=== PATIENT | male | born 1965 | race African-American/Black ===

== ENCOUNTER → 2018-12-28 | Day surgery (SDC) | payer OTHER ==
[~2018-12-28] MED LIST: ALBUTEROL SULFATE 2.5 MG/3 ML NEBU. NEB PRN; ATORVASTATIN CA80 MG PO; ATROPINE 0.5 MG/5 ML DISP.SYRIN. IV PRN; HYDR12.58 PO; IV RINGERS SOLUTION,LACTATED 1,000 ML IV SCH; LIDOCAINE 2% PF Vial for OR 5 ML VIAL. ONE; LISI40TA PO; NALOXONE 0.4 MG/ML VIAL. IV PRN; ONDANSETRON PF 4 MG/2 ML VIAL. IV PRN; PROPOFOL 40 ML IV ONE; SODIUM PHOSPHATES 19/7GM 133 ML ENEMA. ONE; SODIUM PHOSPHATES 19/7GM 133 ML ENEMA. PR ONE; [UNRECOGNIZED DRUG - OTHER]; diphenhydrAMINE 50 MG/ML VIAL IV PRN
[2018-12-28 12:44] VITALS: BP 164/92
--- NOTE | 2018-12-31 18:06 | PATHOLOGY ---
[facility] Accession Number: [id number] . 01 Material submitted: . stomach - ANTRUM GASTRITIS . 01 Clinical history: . Pre-OP DX: EGD Post-OP DX: Antrum gastritis . 02 Diagnosis: Gastric biopsies, antrum: - Chronic gastritis, mild. (JPM:shira; 12/31/2018) QMS/12/31/2018 . 02 Comment: Sections of the gastric biopsy reveal segments of gastric antral mucosa showing congestion and mild chronic inflammation. A properly controlled immunoperoxidase stain for Helicobacter is negative for Helicobacter organisms. There is no evidence of malignancy. (JPM:shira 12/31/2018) . . Special stain performed: Immunoperoxidase stain for Helicobacter on A1. . 02 Electronically signed: . Omar Bowers MD, Pathologist NPI- [id number] . 01 Gross description: . Received in formalin labeled "Franco, Alan, antrum gastritis," are 2 segments of chinchilla soft tissue measuring 0.9 x 0.3 x 0.2 cm in aggregate dimensions and ranging from 0.4 to 0.5 cm in maximum dimension. The specimen is submitted entirely in cassette A1. (TSD; 12/28/2018) TOB/TOB . 02 Pathologist provided ICD-10: K29.50 . 02 CPT . 878409, [id number] Specimen Comment: A courtesy copy of this report has been sent to Specimen Comment: [phone], . Specimen Comment: Report sent to / DR JAY Performed at: [address], [place], [place] [id number] MD Claudio Goss MD Phone: [phone] Performed at: 02 [facility] [address] [place], [place] [id number] MD Omar Bowers MD Phone: [phone]
== END ==
LOC: SURG 09:06
PROVIDERS: ATTEND Internal Medicine Gastroenterology
DX: Z12.11 Encounter for screening for malignant neoplasm of colon (principal); K21.0 Gastro-esophageal reflux disease with esophagitis; K29.50 Unspecified chronic gastritis without bleeding; K63.89 Other specified diseases of intestine; I10 Essential (primary) hypertension; E11.9 Type 2 diabetes mellitus without complications; Z86.010 Personal history of colon polyps
CPT/HCPCS: 43239; 45378; 82947; J2704; J3010; J7120; 88305; 88342; J2001